=== PATIENT | male | born 1980 | race African-American/Black ===

== ENCOUNTER 2019-05-26 10:16 | Emergency (ER) | payer OTHER ==
--- NOTE | 2019-05-26 10:50 | RAD ---
EXAM: XR Hip Lt 2-3 View PROVIDED CLINICAL HISTORY: Left hip pain without injury COMPARISON: None FINDINGS: Prominent periarticular osteophyte formation with superior hip joint space loss. Lack of concavity at the femoral head-neck junction may predispose to femoral-acetabular impingement. No evidence for fracture. Alignment appears otherwise anatomic. No lytic or blastic lesions are seen. IMPRESSION: Advanced degenerative arthrosis of the left hip with morphologic changes that may predispose to femor al-acetabular impingement.
[2019-05-26] MEDS ORDERED: Cyclobenzaprine 10 MG TAB ONE (10:53)
== END 2019-05-26 11:47 | disposition home or self-care (01) ==
LOC: ERS 10:16
DX: M16.12 Unilateral primary osteoarthritis, left hip (principal); Z86.718 Personal history of other venous thrombosis and embolism

== ENCOUNTER 2021-07-12 16:47 | Emergency (ER) | payer SELFPAY ==
[2021-07-12] MEDS ORDERED: Lorazepam 1 MG TAB ONE (18:46)
[2021-07-12] MEDS ORDERED: Acetaminophen 500 MG TAB ONE (20:17)
== END 2021-07-12 21:13 | disposition home or self-care (01) ==
LOC: ERS 16:47
DX: S13.9XXA Sprain of joints and ligaments of unspecified parts of neck, initial encounter (principal); V89.2XXA Person injured in unspecified motor-vehicle accident, traffic, initial encounter
CPT/HCPCS: 70450; 72125